=== PATIENT | female | born 1930 | race American Indian/Alaskan Native ===

== ENCOUNTER 2018-09-18 09:15 | Day surgery (SDC) | payer MEDICARE ==
[2018-09-18] MEDS ORDERED: NACL 0.9% 1000 ML 1,000 ML IV SCH (10:00)
--- NOTE | 2018-09-18 10:05 | Anesthesia Day of Surgery ---
Anesthesia Day of Surgery - Day of Surgery Patient Examined: Yes Patient H&P Reviewed: Yes Patient is NPO: Yes
--- NOTE | 2018-09-18 10:09 | Anesthesia Consultation ---
Anesthesia Consult and Med Hx Date of service: 09/18/18 - Airway Anesthetic Teeth Evaluation: Poor ROM Head & Neck: Adequate Mental/Hyoid Distance: Adequate Mallampati Class: Class II Intubation Access Assessment: Probably Good - Pre-Operative Health Status ASA Pre-Surgery Classification: ASA3 Proposed Anesthetic Plan: MAC - Pulmonary Hx Smoking: No Hx Asthma: Yes Hx Sleep Apnea: No - Cardiovascular System Hx Hypertension: Yes (high cholesterol, irregular heart beat) - Central Nervous System Hx Neuromuscular Disorder: Yes (osteoporosis, arthritis, hx shingles) CVA: No - Gastrointestinal Hx Ulcer: Yes Hx Gastroesophageal Reflux Disease: Yes - Endocrine Hx Non-Insulin Dependent Diabetes: Yes - Hematic Hx Anemia: Yes
[2018-09-18] MEDS ORDERED: DIPRIVAN 10 MG/ML IV ONE ×2 (10:12)
[2018-09-18] MEDS ORDERED: XYLOCAINE 1% 20 mL ONE (10:12)
[2018-09-18] MEDS ORDERED: WATER FOR IRRIG STERILE IR ONE (10:27)
[2018-09-18] MEDS ORDERED: WATER FOR IRRIG STERILE ONE (10:28)
--- NOTE | 2018-09-18 11:20 | Short Stay Summary ---
Short Stay Documentation Date of service: 09/18/18 Narrative H&P: 87 yo AAF with pmh of DM, gastric polyps, and colon polyps here for EGD and colonoscopy for evaluation of anemia and weight loss. Please see paper H&P from clinic visit on 08/27/2018 for further details. - History H&P: obtained from office Past Medical History: diabetes, GERD, hyperlipidemia Past Surgical History: appendectomy - Allergies and Medications Current Medications: Allergies No Known Allergies Allergy (Verified 09/18/18 09:42) Home Medications Medication Instructions Recorded Confirmed Last Taken Type Acyclovir [Zovirax Tab] 1 tab PO BID 09/17/18 09/18/18 09/16/18 History Allopurinol 1 tab PO DAILY 09/17/18 09/18/18 09/16/18 History Centrum Silver Women Tablet 1 tab PO DAILY 09/17/18 09/18/18 09/16/18 History Diltiazem HCl [Diltiazem 12Hr ER] 1 cap PO BID 09/17/18 09/18/18 09/17/18 History Losartan Potassium 1 tab PO Q12H 09/17/18 09/18/18 09/18/18 History Omeprazole 1 cap PO BID 09/17/18 09/18/18 09/16/18 History Spironolactone 1 tab PO DAILY 09/17/18 09/18/18 09/18/18 History Vitamin C 1 cap PO DAILY 09/17/18 09/18/18 09/16/18 History metFORMIN XR [Glucophage XR] 1 tab PO BID 09/17/18 09/18/18 09/17/18 History Albuterol Sulfate [Ventolin Hfa] 2 puff INHALATION Q4HR PRN 09/18/18 09/18/18 09/16/18 History AtorvaSTATin 1 tab PO HS 09/18/18 09/18/18 09/17/18 History Biotin 1 tab PO DAILY 09/18/18 09/18/18 09/16/18 History Carvedilol 1 tab PO BID 09/18/18 09/18/18 09/18/18 History Ferrous Sulfate 1 tab PO DAILY 09/18/18 09/18/18 09/16/18 History Fluticasone 2 inhalation INNOSTRIL DAILY 01/10/19 01/10/19 01/08/19 History Active Medications Sodium Chloride (Nacl 0.9% 1000 Ml) 1,000 mls @ 50 mls/hr IV DIRECT WIL Last Admin: 09/18/18 10:00 Dose: 50 mls/hr Documented by: - Physical exam General appearance: no acute distress HEENT: Atraumatic, PERRLA, EOMI Lungs: Clear to auscultation Heart: Regular rate, Normal S1, Normal S2 Gastrointestinal: normal, no tenderness, no distended Extremities: No edema - Brief post op/procedure progress note Date of procedure: 09/18/18 Pre-op diagnosis: anemia, weight loss Post-op diagnosis: other (gastritis, gastric polyps, colon polyp) Procedure: EGD with biopsy and snare polypectomy and colonoscopy with biopsy Anesthesia: MAC Findings: Gastritis, gastric polyps, colon polyp Surgeon: JANI MORLEY Estimated blood loss: minimal Pathology: list Condition: stable - Disposition Condition at discharge: Good Disposition: DC-01 TO HOME OR SELFCARE Short Stay Discharge Plan Follow up with: TRINI JASSO MD [Primary Care Provider] - 7 Days
--- NOTE | 2018-09-18 11:29 | Operative Report ---
Operative Report Operative Report: Date of procedure: 09/18/2018 Procedure: Esophagogastroduodenoscopy with snare polypectomy Preprocedure diagnosis: anemia, weight loss Post procedure diagnosis: gastric polyps, gastritis Endoscopist: Aly Brink MD Anesthesia: Monitored anesthesia care per anesthesia department Medications: see records per anesthesia Estimated blood loss: 0 After careful discussion of the nature and purpose of the procedure as well as details the technique risks benefits and alternatives consent was obtained. The patient was placed in the supine position and medicated per anesthesia. The tip of the Razorsight EQ 570 video scope was passed per orum under direct vision into the esophagus and advanced into the stomach and descending duodenum. The 2nd part of the duodenum appeared normal. The duodenal bulb revealed normal findings. Biopsies were obtained from the duodenal bulb and 2nd portion of duodenum. The scope was withdrawn into the stomach and the stomach then gently insufflated with air. The antrum revealed erythematous mucosa. Biopsies were obtained from the antrum. The stomach was further insufflated and the scope was then retroflexed and partially withdrawn. The cardia and fundus revealed multiple small (from <5 mm to 6 mm in size) polyps. One of the polyps appeared to have recent bleeding. It appeared to be about 6 mm and it was removed with cold snare polypectomy. The gastric body appeared erythematous. Biopsies were obtained for pathology. The scope was then withdrawn in the forward position. The esophagogastric junction was at 40 cm with regular z-line. The esophagus appeared normal. The procedure was well tolerated and the patient was observed in recovery. Impressions: 1. Antral gastritis. Biopsies obtained. 2. Gastric body gastritis. Biopsies obtained. 3. Multiple small gastric polyps with one ~6 mm polyp with recent bleeding signs with erythematous friable mucosa. It was removed with cold snare polypectomy. Plan: 1. Follow up on pathology results. 2. Proceed with colonoscopy.
--- NOTE | 2018-09-18 11:33 | Operative Report ---
Operative Report Operative Report: Date of procedure: 09/18/2018 Preprocedure diagnosis: anemia, weight loss Post procedure diagnosis: transverse colon polyp Procedure: Colonoscopy to the cecum with biopsy Endoscopist: Aly Brink MD Anesthesia: Monitored anesthesia care per anesthesia department Estimated blood loss: 0 Medications: Monitored anesthesia care. See separate report by anesthesia for details. After careful discussion of the nature and purpose of the procedure as well as details of the technique risks benefits and alternatives the patient gave consent. Please see recent history and physical from the office. The patient was placed in the left lateral decubitus position and medicated per anesthesia. A rectal exam was performed sphincter tone was normal there were no masses palpable. The [employer] 570 scope was passed transanally and advanced under continuous direct vision without difficulty to the cecum. The prep quality was good. Findings: 1. Small (<5 mm) sessile polyp in the transverse colon removed with cold forcep biopsy. 2. Multiple small to large size diverticula in the sigmoid colon. The procedure was well-tolerated overall and the patient was observed in recovery. Conclusions: 1. A small transverse colon polyp removed. 2. Sigmoid diverticulosis. Plan: 1. Follow up on pathology results. 2. Follow up with Dr. Swain in GI clinic.
[2018-09-18 11:51] VITALS: BP 141/53
== END 2018-09-18 09:16 | disposition home or self-care (01) ==
LOC: GIO 09:15
PROVIDERS: ATTEND Internal Medicine Gastroenterology
DX: D12.3 Benign neoplasm of transverse colon (principal); K29.70 Gastritis, unspecified, without bleeding; K63.5 Polyp of colon; K57.30 Diverticulosis of large intestine without perforation or abscess without bleeding; K59.00 Constipation, unspecified; K31.7 Polyp of stomach and duodenum; R63.4 Abnormal weight loss; J45.909 Unspecified asthma, uncomplicated; K21.9 Gastro-esophageal reflux disease without esophagitis; M19.90 Unspecified osteoarthritis, unspecified site; E11.9 Type 2 diabetes mellitus without complications; I10 Essential (primary) hypertension; Z90.49 Acquired absence of other specified parts of digestive tract; Z86.2 Personal history of diseases of the blood and blood-forming organs and certain disorders involving the immune mechanism; Z98.41 Cataract extraction status, right eye; Z79.84 Long term (current) use of oral hypoglycemic drugs; Z79.899 Other long term (current) drug therapy; Z98.42 Cataract extraction status, left eye
CPT/HCPCS: 43239; 43251; 45380; 82962; 88305; 88342; J2704; J7030

== ENCOUNTER 2019-03-20 10:52 | Outpatient (CLI) | payer MEDICARE ==
--- NOTE | 2019-03-20 14:39 | Ultrasound Report ---
ULTRASOUND ABDOMEN, COMPLETE INDICATION: Weight loss for 6 months. COMPARISON: No relevant prior imaging study available. FINDINGS: Pancreas: No significant abnormality. Abdominal Aorta: No significant abnormality. IVC: No significant abnormality. Liver: No significant abnormality. Normal hepatopedal blood flow in the main portal vein. Gallbladder: None shadowing debris consistent with sludge is identified in the gallbladder. No large shadowing gallstones.. Bile ducts: No significant abnormality. Common bile duct measures 3 mm. Kidneys: Right: 12.2 cm in length. No significant abnormality. Left: 10.7 cm in length. No signif icant abnormality. Spleen: No significant abnormality. Free fluid: None. Additional Findings: None. IMPRESSION: Mild degree of sludge in the gallbladder. No evidence for acute cholecystitis. Signer Name: Gaston Ram Jr, MD Signed: 03/20/2019 2:35 PM Workstation Name: [id number]
--- NOTE | 2019-03-23 10:02 | Mammography Report ---
BILATERAL DIGITAL DIAGNOSTIC MAMMOGRAM WITH CAD 03/20/2019 RIGHT BREAST ULTRASOUND INDICATION: Right breast mass. However, the patient did not point to a specific lump and no marker wa s placed on the breast. She did apparently indicate the upper breast as the area of interest. TECHNIQUE: Digital bilateral mammographic imaging was performed. This examination was interpreted w ith the benefit of Computer-Aided Detection (CAD) analysis. COMPARISON: None. FINDINGS: Breast Density: The breasts are extremely dense, which lowers the sensitivity of mammography. There is no evidence of dominant mass, suspicious calcifications or architectural distortion in eithe r breast. Ultrasound Findings: Targeted ultrasound evaluation was performed of the area of interest. Ultrasou nd demonstrated normal fibroglandular structures in the upper breast from 9:00 to 3:00. No mass, cyst or shadowing. IMPRESSION: Negative bilateral mammogram and targeted right breast ultrasound. Recommend clinical fol low-up and routine mammographic screening in one year. BI-RADS Category 1: Negative. Recommend routine screening mammography in one year. A "normal" or negative report should not discourage follow up or biopsy of a clinically significant f inding. A written summary of these findings will be mailed to the patient. The patient will be entered into a mammography reporting system which will generate a reminder letter for the patient's next appointmen t at the appropriate interval. FURTHER INFORMATION: According to the [employer], yearly mammograms are recommend ed starting at age 40 and continuing as long as a woman is in good health. Breast MRI is recommended for women with an approximately 20-25% or greater lifetime risk of breast cancer, including women wi th a strong family history of breast or ovarian cancer and women who have been treated for Hodgkin's disease. Signer Name: Hussain Burris MD Signed: 03/23/2019 9:57 AM Workstation Name: [id number]
== END 2019-03-20 10:53 | disposition home or self-care (01) ==
LOC: MAMMO 10:52
PROVIDERS: ATTEND Family Medicine
DX: K82.8 Other specified diseases of gallbladder (principal); N63.10 Unspecified lump in the right breast, unspecified quadrant; I10 Essential (primary) hypertension; K21.9 Gastro-esophageal reflux disease without esophagitis; E11.9 Type 2 diabetes mellitus without complications
CPT/HCPCS: 76700; 77066

== ENCOUNTER 2019-05-19 12:04 | Outpatient (CLI) | payer MEDICARE ==
--- NOTE | 2019-05-19 13:45 | XRay Report ---
CHEST 2 VIEWS INDICATION: COUGH. COMPARISON: None FINDINGS: Support devices: None. Heart: Within normal limits. Lungs/pleura: The lungs are hyperinflated consistent with mild COPD. No evidence for infiltrate or pl eural fluid. No pneumothorax. Additional findings: None. IMPRESSION: Mild COPD. Signer Name: Gaston Ram Jr, MD Signed: 05/19/2019 1:40 PM Workstation Name: [id number]
== END 2019-05-19 12:05 | disposition home or self-care (01) ==
LOC: XRAY 12:04
PROVIDERS: ATTEND Family Medicine
DX: J44.9 Chronic obstructive pulmonary disease, unspecified (principal); I10 Essential (primary) hypertension; K21.9 Gastro-esophageal reflux disease without esophagitis; E11.9 Type 2 diabetes mellitus without complications
CPT/HCPCS: 71046